=== PATIENT | male | born 1940 | race Hispanic/Latino ===

== ENCOUNTER 2017-09-05 21:36 | Emergency (ER) | payer SELFPAY ==
[2017-09-05 22:34] LABS: ALT (SGPT) 14 U/L (8-55); AST (SGOT) 15 U/L (5-34); Alkaline Phosphatase 67 U/L (40-150); Anion Gap 14 mmol/L (10-20); BUN (Urea Nitrogen) 15 mg/dL (8.4-25.7); Bilirubin, Total 0.4 mg/dL (0.2-1.2); Calc. Creatinine Clearance 0 mL/min (70-130); Calcium 8.9 mg/dL (7.8-10.44); Carbon Dioxide 24 mmol/L (23-31); Chloride 106 mmol/L (98-107); Estimated GFR-MDRD 71; Globulin 2.9 g/dL (2.4-3.5); Glucose 145 mg/dL (83-110); PTT 31.4 SEC (22.9-36.1); Potassium 3.8 mmol/L (3.5-5.1); Protein, Total 6.9 g/dL (5.8-8.1); Prothrombin Time 13.3 SEC (12.0-14.7); Sodium 140 mmol/L (136-145)
[2017-09-05 22:36] LABS: #Basophils 0.1 thou/uL (0.0-0.2); #Eosinphils 0.1 thou/uL (0.0-0.7); #Lymphocytes 1.8 thou/uL (1.20-3.40); #Monocytes 0.7 thou/uL (0.11-0.59); #Neutrophils 8.6 thou/uL (1.40-6.50); %Basophils 1.2 % (0.0-1.0); %Eosinophils 0.7 % (0.0-10.0); %Lymphocytes 15.9 % (21.0-51.0); %Monocytes 5.9 % (0.0-10.0); %Neutrophils 76.3 % (42.0-75.0); CKMB 2.3 ng/mL (0-6.6); Hemoglobin 14.6 g/dL (14.0-18.0); Mean Corpuscular HGB CONC 32.6 g/dL (32.0-36.0); Mean Corpuscular Hemoglobin 29.1 pg (27.0-31.0); Mean Corpuscular Volume 89.2 fl (80.0-94.0); Mean Platelet Volume 12.6 fL (7.4-10.4); Platelet Count 145 thou/uL (130-400); RBC Distribution Width 12.8 % (11.5-14.5); Red Blood Cell (RBC) Count 5.03 mill/uL (4.70-6.10); Troponin I Less than 0.010 ng/mL (< 0.028); White Blood Cell (WBC) Count 11.3 thou/uL (4.8-10.8)
[2017-09-05 22:54] LABS: CK (CPK) 98 U/L (30-200)
--- NOTE | 2017-09-05 23:24 | CT ---
CT HEAD NONCONTRAST: 09/05/17 Stroke protocol. Examination submitted in PACS for interpretation at 2312 hours. CLINICAL HISTORY: Weakness. FINDINGS: There is prominent motion which degrades image quality and limits assessment. No ventriculomegaly, ma ss producing hemorrhage or midline shift evident. Minimal mucosal thickening is seen within the paran cecelia sinuses. Minimal hypoattenuation indicating chronic ischemic disease present. Segmentally visual ized right MCA is of increased density. IMPRESSION: Limited exam by the degree of patient motion. No obvious acute intracranial hemorrhage or mass effect . Telephone call of findings placed to the ER physician, Vikas Vasquez at 2315 hours, 09/05/17. Code CR POS: PARVIZ
== END 2017-09-05 23:51 | disposition short-term general hospital (02) ==
LOC: NAV ERS 21:36
DX: S06.300A Unspecified focal traumatic brain injury without loss of consciousness, initial encounter (principal); I10 Essential (primary) hypertension; W19.XXXA Unspecified fall, initial encounter; Y93.E1 Activity, personal bathing and showering; Y92.002 Bathroom of unspecified non-institutional (private) residence as the place of occurrence of the external cause
CPT/HCPCS: 36416; 70450; 80053; 82553; 84484; 85025; 85610; 85730; 93005; 94760

== ENCOUNTER 2018-10-06 06:56 | Emergency (ER) | payer MEDICARE | END 2018-10-06 07:15 | disposition E | LOC: NAV ERS 06:56 | DX: I46.9 Cardiac arrest, cause unspecified (principal) | CPT/HCPCS: 31500; 36416; 92950; 96374; 96375 ==